=== PATIENT | female | born 1945 ===

== ENCOUNTER 2017-12-21 15:56 | Emergency (ER) | payer MEDICARE ==
[2017-12-21] MEDS ORDERED: Bacitracin OINT 15GM TOP STA (16:48)
--- NOTE | 2017-12-21 16:59 | ED PDOC ---
Lower Extremity Pain/Injury Time Seen by Provider: 12/21/17 16:12 Chief Complaint (Nursing): Lower Extremity Problem/Injury Chief Complaint (Provider): Lower Extremity Problem/Injury History Per: Patient History/Exam Limitations: no limitations Onset/Duration Of Symptoms: Hrs Current Symptoms Are (Timing): Still Present Additional Complaint(s): 72 y/o female with a PMHx presents to the ED for evaluation of left knee pain s/ p fall this morning. Patient states she walked into a store and tripped over the rug, landing on her left knee and left hand. Patient reports localized swelling and bruising to the left knee. Patient also reports of sustaining an abrasion to the base of her left fifth finger. Patient states she controlled the bleeding prior to arrival. In addition, patient states at the time of the fall she was experiencing a headache prior to falling and was concerned it was because her blood pressure was high. However, patient states headache improved upon arrival. Otherwise: (-) head injury, (-) loss of consciousness, (-) abdominal pain, (-) chest pain, (-) nausea, (-) vomiting, (-) diarrhea, (-) other complaints at this time. PMD: Onur Dill Tetanus Vaccination not up to date - Knee Description Of Injury: Fell Past Medical History Reviewed: Historical Data, Nursing Documentation, Vital Signs Vital Signs: Last Vital Signs Temp 98.2 F 12/21/17 16:04 Pulse 65 12/21/17 16:04 Resp 16 12/21/17 16:04 BP 134/74 12/21/17 16:04 Pulse Ox 95 12/21/17 16:04 - Medical History PMH: HTN - Surgical History Surgical History: Cholecystectomy - Immunization History Hx Tetanus Toxoid Vaccination: No - Home Medications Home Medications: Ambulatory Orders Medication Instructions Recorded Acetaminophen [Acetaminophen 8 650 mg PO Q8 PRN #21 tablet.er 12/21/17 Hour] - Allergies Allergies/Adverse Reactions: Allergies Allergy/AdvReac Type Severity Reaction Status Date / Time No Known Allergies Allergy Verified 12/21/17 16:03 Review of Systems ROS Statement: Except As Marked, All Systems Reviewed And Found Negative Musculoskeletal: Positive for: Leg Pain (left knee) Skin: Positive for: Other (Abrasion to the left fifth digit) Physical Exam - Reviewed Nursing Documentation Reviewed: Yes Vital Signs Reviewed: Yes - Physical Exam Comments: GENERAL APPEARANCE: Patient is awake, alert, oriented x 3, in no acute distress. SKIN: Warm, dry; (-) cyanosis. UPPER EXTREMITY: (+) 3 mm superficial scabbed abrasion to the proximal phalanx of the left fifth digit on the lozano aspect. Full ROM of digits and hand. (-) active bleeding. Capillary refill and sensations intact. (-) deformity. Elbow, hand and digits: (-) tenderness. LOWER EXTREMITY: KNEE: (+) small effusion, (+) tenderness to the anterior knee , (+) ecchymosis to the anterior knee. Full ROM with pain on flexion. (-) Instability of valgus or varus stress. (-) anterior and posterior draw sign. CHEST AND RESPIRATORY: (+) bilateral expiratory wheezing; (-) rales, (-) rhonchi, (-) rub; breath sounds equal bilaterally. HEART AND CARDIOVASCULAR: (-) irregularity; (-) murmur, (-) gallop. (+) distal pulse. NEURO AND PSYCH: Mental status as above. - ECG O2 Sat by Pulse Oximetry: 95 (RA) Pulse Ox Interpretation: Normal Medical Decision Making Medical Decision Making: Time: 1648 Impression: Acute Knee Pain, abrasion s/p fall Plan: -- Knees 3 Views LT XR -- Bacitracin dressing to abrasion after saline irrigation -- Tylenol 650 mg PO -- Adacel (10-64 yrs) 0.5 ml IM Time: 1755 XR RESULTS FINDINGS: BONES: Normal. No fracture. JOINTS: Evidence of chondrocalcinosis common normal variant. Mild osteoarthritic changes identified. JOINT EFFUSION: None. OTHER FINDINGS: None. IMPRESSION: No acute findings related to/accounting for the clinical presentation. Additional benign and/or incidental findings described above. 1820 On re-evaluation, patient reports improvement of symptoms. On exam, patient remains AAOx3, in no acute distress. On exam, neck is supple, lungs CTA, cardiac RRR, abdomen is soft and non-tender, neuro exam shows no focal findings. VSS, stable for discharge. RICE encouraged. Diagnostic results d/w the patient in great detail. Dx of acute knee pain/ contusion, skin abrasion s/p fall d/w the patient. Based on history, exam and diagnostic results plan will be for discharge and PMD follow up. Advised to follow up with primary care physician in 1-2 days without fail. Advised to take medication as prescribed. Return to the emergency room at any time for any new or worsening symptoms. Patient states she fully agrees with and understands discharge instructions. States that she agrees with the plan and disposition. Verbalized and repeated discharge instructions and plan. I have given the patient opportunity to ask any additional questions. Scribe Attestation: Documented by Karen Valdovinos, acting as a scribe for Sania Rowe PA-C. Provider Scribe Attestation: All medical record entries made by the Scribe were at my direction and personally dictated by me. I have reviewed the chart and agree that the record accurately reflects my personal performance of the history, physical exam, medical decision making, and the department course for this patient. I have also personally directed, reviewed, and agree with the discharge instructions and disposition. Disposition - Clinical Impression Clinical Impression: Acute knee pain, Contusion, Skin abrasion - Patient ED Disposition Is Patient to be Admitted: No Counseled Patient/Family Regarding: Studies Performed, Diagnosis, Need For Followup, Rx Given - Disposition Referrals: Onur Dill MD [Medical Doctor] - Disposition: Routine/Home Disposition Time: 18:21 Condition: STABLE Additional Instructions: The emergency medical care you received today was directed at your acute symptoms. If you were prescribed any medication, please fill it and take as directed. It may take several days for your symptoms to resolve. Return to the Emergency Department if your symptoms worsen, do not improve, or if you have any other problems. Please contact your doctor in 2 days for re-evaluation and follow up / or call one of the physicians/clinics you have been referred to that are listed on the Patient Visit Information form that is included in your discharge packet. Bring any paperwork you were given at discharge with you along with any medications you are taking to your follow up visit. Our treatment cannot replace ongoing medical care by a primary care provider (PCP) outside of the emergency department. Prescriptions: Acetaminophen [Acetaminophen 8 Hour] 650 mg PO Q8 PRN #21 tablet.er PRN Reason: Pain, Moderate (4-7) Instructions: Knee Pain (DC), Contusion (DC), Skin Abrasions, Wound Care Forms: [employer] (Lao) Print Language: ARABIC - POA Present On Arrival: Falls Or Trauma
[2017-12-21] MEDS ORDERED: Tdap Vaccine 0.5 ml Vial (10-64 yrs) IM ONE ×2 (17:09→17:13)
[2017-12-21] MEDS ORDERED: Bacitracin 500 Units/gm Oint Foilpak UD ONE (17:16)
--- NOTE | 2017-12-21 18:05 | RAD ---
Date of service: 12/21/2017 PROCEDURE: Left Knee Radiographs. HISTORY: Pain. COMPARISON: None. FINDINGS: BONES: Normal. No fracture. JOINTS: Evidence of chondrocalcinosis common normal variant. Mild osteoarthritic changes identified. JOINT EFFUSION: None. OTHER FINDINGS: None. IMPRESSION: No acute findings related to/accounting for the clinical presentation. Additional benign and/or incidental findings described above.
[2017-12-21 19:13] VITALS: BP 140/71; PULSE 78; RESP 18; TEMP 98; O2SAT 100
== END 2017-12-21 19:11 | disposition home or self-care (01) ==
LOC: H.ER 15:56
DX: S80.219A Abrasion, unspecified knee, initial encounter (principal); M25.562 Pain in left knee; W19.XXXA Unspecified fall, initial encounter; Y92.512 Supermarket, store or market as the place of occurrence of the external cause; I10 Essential (primary) hypertension